=== PATIENT | male | born 1980 | race African-American/Black ===

== ENCOUNTER 2018-11-06 13:01 | Emergency (ER) | payer SELFPAY ==
[~2018-11-06] VITALS: Ht 182.9 cm; Wt 81.6 kg
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
--- NOTE | 2018-11-06 13:16 | NUR ---
LARRY GUTIERREZ AT BEDSIDE FOR MSE.
[2018-11-06] MEDS ORDERED: TDAP DIPH,PERTUSS,TET VAC/PF 0.5 ML DISP.SYRIN IM ONE ×2 (13:23→13:30)
[2018-11-06] MEDS ORDERED: LIDOCAINE 1%-EPI 1:100,000 20 ML VIAL TP ONE (13:30)
--- NOTE | 2018-11-06 14:08 | NUR ---
L FOREARM LAC SUTURED - SUPERFICIAL 5 SUTURES, DEEP 3 SUTURES. SUTURE DRESSED W/ NON-ADHERENT GAUZE AND ROLL GAUZE.
--- NOTE | 2018-11-06 14:09 | NUR ---
Patient discharged to home in stable conditon. Written and verbal after care instructions given. Patient verbalizes understanding of instructions. ALL BELONGINGS W/ PT. PT SELF-AMBULATED W/O DIFFICULTY.
[2018-11-06 14:10] VITALS: BP 127/77
== END 2018-11-06 14:20 | disposition home or self-care (01) ==
LOC: ER 13:01
DX: S51.812A Laceration without foreign body of left forearm, initial encounter (principal); Z88.6 Allergy status to analgesic agent; X58.XXXA Exposure to other specified factors, initial encounter; Y93.89 Activity, other specified; Y92.89 Other specified places as the place of occurrence of the external cause; Y99.8 Other external cause status
CPT/HCPCS: 12032; 90471; 90715; 99284; J3490; A4217; A4663